=== PATIENT | male | born 1990 | race Caucasian/White ===

== ENCOUNTER 2018-06-21 18:41 | Emergency (ER) ==
[2018-06-21 18:45] VITALS: BP 162/100; TEMP 98.3; BMI 28.1
== END 2018-06-21 19:30 | disposition left against medical advice (07) ==
LOC: ED 18:41
DX: M79.631 Pain in right forearm (principal); M79.89 Other specified soft tissue disorders

== ENCOUNTER 2018-06-25 15:29 | Emergency (ER) ==
[2018-06-25 15:42] VITALS: TEMP 99.1; BMI 29.3
[2018-06-25] MEDS ORDERED: NORCO 10-325 PO STA (16:47)
[2018-06-25 17:13] VITALS: BP 144/80
--- NOTE | 2018-06-25 18:01 | CT ---
EXAM: CT cervical spine without contrast HISTORY: Right arm radiculopathy TECHNIQUE: Multi-slice transaxial helical with coronal and sagittal reformatted views. COMPARISON: None FINDINGS: A mild dextroscoliosis is centered near C6-C7. The intervertebral joint spaces are mainta ined. The vertebrae have normal height and alignment. No acute fractures or lithesis are observed. T he prevertebral soft tissues have normal width. The facet alignment is appropriate. There is no signi ficant disc bulge, disc protrusion, or disc herniation. There is no neural foraminal narrowing. IMPRESSION: 1. No acute fracture or lithesis. 2. No significant spondylosis. 3. No CT explanation for the patient's right upper extremity radiculopathy.
--- NOTE | 2018-06-25 18:11 | ED.PDOC ---
General ED Provider: Dr. YUDI BLACK Chief Complaint: Extremity Pain/Injury Stated Complaint: right upper ext pain Time Seen by Physician: 15:38 (seen with rom) Mode of Arrival: Walk-In Information Source: Patient Exam Limitations: No limitations Nursing and Triage Documentation Reviewed and Agree: Yes Does patient meet sepsis criteria?: No System Inflammatory Response Syndrome: Not Applicable (denied trauma . PAIN RIGHT UPPER EXT W/O TRAUMA NO NEGATIVE NECK INJURY ) Sepsis Protocol: For patient's 13 years and over: Temp is 96.8 and below OR 101 and greater Pulse >90 BPM Resp >20/minute Acutely Altered Mental Status Are patient's symptoms suggestive of a new infection, such as: -Pneumonia -Skin, Soft Tissue -Endocarditis -UTI -Bone, Joint Infection -Implantable Device -Acute Abdominal Infection -Wound Infection -Meningitis -Blood Stream Catheter Infection -Unknown Musculoskeletal Complaint Exam - Upper Extremity Complaint/Exam Location of Pain: Reports: Right (UPPER EXT PAIN X 5 DAYS INCREASING PAIN IS DESRIBED SHARP AND STEADY ) Mechanism of Injury: Reports: No known trauma, Other Onset/Duration: 5 DAYS Symptoms Are: Still present Timing: Constant Episodes Lasting: Days Initial Severity: Moderate Current Severity: Moderate Location: Reports: Discrete (RIGHT UPPER ) Character: Reports: Aching, Spasmodic Aggravating: Reports: None Alleviating: Reports: None Related History: Reports: Similar episode Non-Orthopedic Risk Factors: Reports: None DVT Risk Factors: Reports: None Septic Arthritis Risk Factors: Reports: None Related Surgical History: Reports: None Upper Extremity Findings: Present: Tenderness. Absent: Swelling, Ecchymosis, Abnormal contour, Rotation, Ligamentous instability, Laceration, Erythema, Warmth, Blisters, Other joint pain, Foreign body Review of Systems - Review Of Systems Constitutional: Reports: No symptoms Eyes: Reports: No symptoms Ears, Nose, Mouth, Throat: Reports: No symptoms Respiratory: Reports: No symptoms Cardiac: Reports: No symptoms GI: Reports: No symptoms : Reports: No symptoms Musculoskeletal: Reports: Other (right uppext pain) Skin: Reports: No symptoms Neurological: Reports: No symptoms Endocrine: Reports: No symptoms Hematologic/Lymphatic: Reports: No symptoms All Other Systems: Reviewed and Negative Past Medical History - Past Medical History Previously Healthy: Yes Endocrine: Reports: None Cardiovascular: Reports: None Respiratory: Reports: None Hematological: Reports: None Gastrointestinal: Reports: None Genitourinary: Reports: None Neuro/Psych: Reports: None Musculoskeletal: Reports: None Cancer: Reports: None - Surgical History General Surgical History: Reports: None - Family History Family History: Reports: None - Social History Smoking Status: Never smoker Hx Substance Use: No Alcohol Screening: Occasionally - Immunizations Tetanus Shot up to Date: Yes (unsure but believes he is) Physical Exam - Physical Exam Appearance: Well-appearing, No pain distress, Well-nourished Eyes: JUAN, EOMI, Conjunctiva clear ENT: Ears normal, Nose normal, Oropharynx normal Respiratory: Airway patent, Breath sounds clear, Breath sounds equal, Respirations nonlabored Cardiovascular: RRR (all right upper ext pulses are strong ), Pulses normal, No rub, No murmur GI/: Soft, Nontender, No masses, Bowel sounds normal, No Organomegaly Musculoskeletal: Normal strength, ROM intact, No edema, No calf tenderness Skin: Warm, Dry, Normal color Neurological: Motor intact (temp sensation intact but no tactile sensation from shoulder to elbow) Psychiatric: Affect appropriate, Mood appropriate Physician Notification - Case Discussed Physician Notified: violette Time of Notification: 18:44 Physician Notified: dianna Time of Notification: 18:10 (talk to vascular surgeon) Critical Care Note - Critical Care Note Total Time (mins): 0 Course - Course Hematology/Chemistry: 06/25/18 16:50 06/25/18 16:50 Orders, Labs, Meds: Lab Review 06/25/18 06/25/18 16:50 16:50 WBC 11.08 H RBC 4.44 L Hgb 14.2 Hct 41.6 L MCV 93.7 MCH 32.0 H MCHC 34.1 RDW Coeff of Katerina 11.9 Plt Count 294 Immature Gran % (Auto) 3.2 Neut % (Auto) 62.5 Lymph % (Auto) 22.8 [place] % (Auto) 9.5 Eos % (Auto) 1.5 Baso % (Auto) 0.5 Immature Gran # (Auto) 0.4 Neut # (Auto) 6.9 Lymph # (Auto) 2.5 [place] # (Auto) 1.1 Eos # (Auto) 0.2 Baso # (Auto) 0.1 Sodium 138.0 Potassium 3.98 Chloride 100.5 Carbon Dioxide 33.1 H Anion Gap 8.38 BUN 11.4 Creatinine 0.72 Estimated GFR (MDRD) 129.00 BUN/Creatinine Ratio 15.83 Glucose 62.2 L Calcium 9.03 Total Bilirubin < 0.10 L AST 24.2 ALT 42.7 Alkaline Phosphatase 57.8 Total Protein 6.62 Albumin 3.79 Globulin 2.83 Albumin/Globulin Ratio 1.33 Orders Category Date Time Status NPO REMINDER: IMAGING ONCE CARE 06/25/18 16:46 Active ED IV/MEDIPORT/POWERPORT .ONCE EMERGENCY 06/25/18 16:47 Active CBC W/ AUTO DIFF Stat LAB 06/25/18 16:50 Completed COMPREHENSIVE METABOLIC PANEL Stat LAB 06/25/18 16:50 Completed 0.9 % Sodium Chloride [Saline Flush] MEDS 06/25/18 16:47 Ordered 1 syr IVF PRN PRN Hydrocodone Bit/Acetaminophen [[place] 10-325] MEDS 06/25/18 16:47 Discontinued 1 tab PO ONCE STA CT CERVICAL SPINE W/O CONTRAST Stat RADS 06/25/18 16:46 Completed CTA ANGIO UPPER EXTREMITY Stat RADS 06/25/18 16:46 Completed Medications Generic Name Dose Route Start Last Admin Trade Name Freq PRN Reason Stop Dose Admin Sodium Chloride 1 syr 06/25/18 16:47 Saline Flush IVF PRN PRN To flush IV Discontinued Medications Generic Name Dose Route Start Last Admin Trade Name Freq PRN Reason Stop Dose Admin Hydrocodone Bitart/Acetaminophen 1 tab 06/25/18 16:47 06/25/18 17:02 [place] 10-325 PO 06/25/18 16:48 1 tab ONCE STA Administration Vital Signs: Temp Pulse Resp BP Pulse Ox 06/25/18 16:31 144/80 H 06/25/18 16:15 135/82 06/25/18 16:00 125/64 06/25/18 15:47 135/85 06/25/18 15:34 99.1 F 87 18 150/100 H 98 Departure - Departure Time of Disposition: 18:44 (pulses confirmed with linda ) Disposition: HOME SELF-CARE Discharge Problem: Pain, joint, upper arm, right Condition: Good Pt referred to PMD for follow-up: Yes IPMP verified?: No Additional Instructions: Please call your Family Physician as soon as possible to schedule a follow-up appointment. Allergies/Adverse Reactions: Allergies No Known Allergies Allergy (Unverified 06/21/18 18:46) Home Medications: Ambulatory Orders Ibuprofen 800 mg PO Q4-6H PRN 06/25/18
--- NOTE | 2018-06-25 18:24 | CT ---
EXAM: CTA right upper extremity with contrast HISTORY: Right arm pain began 5-7 days ago, elbow pain, right upper extremity through times as well a s the left upper extremity per patient. Difficulty bending right arm at the elbow and unable to lift right arm. TECHNIQUE: Multi-slice transaxial helical images of the right upper extremity are acquired following the administration of intravenous contrast according to a standard angiogram protocol. Coronal and sagittal MIP images as well as 3-D volume rendered images are recreated from the source data. CONTRAST: Intravenous Omnipaque-350, 125 mL COMPARISON: None FINDINGS: VASCULAR: The maxilla, subclavian, and axillary arteries are patent. The brachial artery is widely patent. The radial ulnar arteries are not opacified distally where patent proximally. The palmar a nd digital branches are not opacified which may be related to the contrast bolus timing. NONVASCULAR: There is diffuse subcutaneous edema in the right forearm. No rim enhancing fluid colle ctions are evident. The visible portions of the right lung are clear. 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 The bones are free of suspicious osteolytic or osteoblastic lesions. IMPRESSION: 1. Probable cellulitis in the right forearm. 2. Distal radial and ulnar arteries not opacified. In addition, palmar and digital arteries not opa cified. Vascular occlusion cannot be excluded. Recommend correlation with arterial Doppler. 3. Horseshoe kidneys.
== END 2018-06-25 19:00 | disposition short-term general hospital (02) ==
LOC: ED 15:29
DX: M79.601 Pain in right arm (principal)
CPT/HCPCS: 36415; 80053; 85025; 99283